=== PATIENT | male | born 1970 | race Caucasian/White ===

== ENCOUNTER 2022-06-24 16:45 | Emergency (ER) | payer BC, SELFPAY ==
[2022-06-24 16:46] VITALS: BP 132/86; PULSE 79; RESP 18; TEMP 35.6; O2SAT 97; BMI 27.3
[2022-06-24 18:51] LABS: Bacteria 0 SEEN /hpf (None Seen); Mucous, Urine 0 SEEN /hpf (<or=2+); Red Blood Cells-Urine 0 SEEN /hpf (0-5); Squamous Epithelial Cells - UA 0 SEEN /hpf (0-5)
[2022-06-24 18:58] LABS: Color, Urine Yellow (Yellow); Glucose, Dipstick 50 mg/dl (Normal); Ketone-Dipstick Negative (Negative); Leukocyte Esterase-Dipstick 25 /ul (Negative); Nitrite-Dipstick Negative (Negative); Occult Blood-Urine Negative /ul (Negative); Protein-Dipstick 15 mg/dl (Negative); Specific Gravity, Urine 1.015 (1.002-1.030); Urine Bilirubin Dipstick Negative (Negative); Urine Clarity Clear (Clear); Urine Urobilinogen Normal (Normal)
[2022-06-24 19:37] LABS: White Blood Cells 5-10 SEEN /hpf (0-5)
[2022-06-24 19:45] LABS: Absolute Lymphocyte Count 4.34 X10^3/uL (0.83-4.51); Absolute Neutrophil Count 9.5 X10^3/uL (2.0-7.7); Basophil# 0.07 X10^3/uL; Basophil% 0.4 % (0-1); Eosinophil# 0.37 X10^3/uL; Eosinophils% 2.3 % (0-5); Hematocrit 45.3 % (40-54); Hemoglobin 15.3 g/dL (13.0-16.5); Lymphocyte # 4.34 X10^3/ul (0.83-4.51); Lymphocyte % 27.2 % (19-41); Mean Corp Hgb Conc 33.8 g/dL (32-36); Mean Corpuscular Hgb 30.5 pg (27.0-32.0); Mean Corpuscular Volume 90.2 fL (80-94); Mean Platelet Vol. 9.8 fl (6.2-12.0); Monocyte# 1.61 X10^3/uL; Monocyte% 10.1 % (0-10); NRBC Flagged by Analyzer 0 % (0-5); Neutrophil % 59.7 % (47-70); POSITIVE DIFFERENTIAL YES; Platelet Count 313 K/mm3 (150-450); RBC Distribution Width CV 12.4 % (11.6-14.6); RBC Distribution Width SD 40.9 fl (35.1-43.9); Red Blood Count 5.02 M/mm3 (4.6-6.2); White Blood Count 15.9 K/mm3 (4.4-11.0)
[2022-06-24 19:46] LABS: Differential Indicated SCAN CRITERIA MET
[2022-06-24] MEDS: Ondansetron 4 MG/2 ML Vial IV (19:46)
[2022-06-24] MEDS: Ketorolac 15 MG/ML Vial IV (19:46)
[2022-06-24 20:04] LABS: Anion Gap 8 (5-15); BUN 27 mg/dL (7-18); BUN/Creat Ratio 20.3 RATIO (10-20); Calcium,Total 9.3 mg/dL (8.5-10.1); Chloride 103 mmol/L (98-107); Creatinine, Serum 1.33 mg/dL (0.70-1.30); EST Glomerular Filtration Rate 60 mL/min (>60); Est Glom Filt Rate - Afr Amer 72 mL/min (>60); Estimated Creatinine Clearance 63.49 ml/min; Glucose 130 mg/dL (74-106); Potassium 3.9 mmol/L (3.5-5.1); Sodium Level 137 mmol/L (136-145)
[2022-06-24 20:05] LABS: Differential Comment SCANNED
--- NOTE | 2022-06-24 20:05 | CT_ITS ---
INDICATION: RLQ abdominal pain EXAMINATION: CT ABDOMEN AND PELVIS WITH CONTRAST - CT Abdomen And Pelvis W/ Contrast Injection TECHNIQUE: Helically acquired images were obtained of the abdomen and pelvis following IV contrast. A radiation dose optimization technique was used for this scan. IV Contrast dosage and agent: 96 mL Isovue-370 Oral contrast: None. COMPARISON: 08/15/2016. FINDINGS: LOWER CHEST: Lung bases are clear. No cardiomegaly or pericardial effusion. LIVER: Homogeneous. No focal mass. GALLBLADDER AND BILIARY TREE: Tiny calcified gallstones. No gallbladder distension or wall edema. No intra- or extrahepatic biliary ductal dilation. PANCREAS: Substantial fatty replacement with a few coarse calcifications. SPLEEN: Normal size without focal cystic or solid mass. ADRENAL GLANDS: No nodules. KIDNEYS AND URETERS: 1.2 cm calculus at the right ureteropelvic junction with mild hydronephrosis and slightly delayed nephrogram. Other calculi layering in the right renal collecting system. Normal renal size and position. PERITONEUM: No ascites or free air. No other fluid collection. BOWEL: No evidence of acute appendicitis. No stomach or bowel distension. No focal inflammatory change. LYMPH NODES: No enlarged mesenteric or retroperitoneal lymph nodes. VESSELS: Aorta is non-dilated. URINARY BLADDER: Unremarkable. REPRODUCTIVE ORGANS: No pelvic masses. ABDOMINAL WALL: No discrete abdominal or pelvic wall hernia. BONES: Normal thoracolumbar vertebral alignment. CT/Abdomen/Pelvis W IV Cont ONLY IMPRESSION: Obstructing right UPJ 1.2 cm calculus. Normal appearance of the appendix. Electronically Signed: Taurus Fuentes MD at 20:51 EST ,
[2022-06-24 20:16] VITALS: BP 153/89; PULSE 64; RESP 18; O2SAT 93
[2022-06-24 21:52] VITALS: BP 130/62; PULSE 67; RESP 17; O2SAT 94
--- NOTE | 2022-06-24 21:53 | EDS_ITS ---
HPI History of Present Illness Chief Complaint: Flank Pain Narrative Narrative: 52-year-old male presenting with right lower quadrant abdominal pain and flank pain which has had for about 3 weeks. Is been on and off. Is taken ibuprofen with some relief. Patient states he has a distant history of kidney stones. He does admit to passing stones frequently and noticed at least 3 over the last 3 weeks. Patient denies any occult blood. No fever or chills. He has occasional nausea. No diarrhea or constipation. PFSH PFSH Medical History Diabetes mellitus Hypertension Home Medications amlodipine 5 mg tablet mg 06/24/22 [History Last Taken Unknown] insulin aspart U-100 100 unit/mL (3 mL) subcutaneous pen (Novolog FlexPen U-100 Insulin aspart) subcut 06/24/22 [History Last Taken Unknown] insulin degludec 100 unit/mL (3 mL) subcutaneous pen (Tresiba FlexTouch U-100 insulin) unit subcut 06/24/22 [History Last Taken Unknown] [id number] 36,000-114,000-180,000 unit capsule,delay rel (Creon) cap PO 06/24/22 [History Last Taken Unknown] lisinopril 20 mg-hydrochlorothiazide 12.5 mg tablet tab 06/24/22 [History Last Taken Unknown] metformin 500 mg tablet,extended release 24 hr mg PO 06/24/22 [History Last Taken Unknown] ondansetron 4 mg disintegrating tablet 4 mg PO Q8H PRN PRN Nausea #14 tabs 06/24/22 [Rx Last Taken Unknown] oxycodone 5 mg capsule 5 mg PO Q6H PRN pain 3 days #12 caps 06/24/22 [Rx Last Taken Unknown] Allergy/AdvReac Type Severity Reaction Status Date / Time No Known Allergies Allergy Verified 06/24/22 16:46 Surgical History Hx of tonsillectomy Social History Smoking Status: Never smoker ROS ROS ED Constitutional Constitutional ED: Denies chills, fever(s) or subjective Eyes Eyes: Denies change in vision or diplopia ENT ENT ED: Denies ear pain or rhinorrhea Cardiovascular Cardiovascular: Denies chest pain or palpitations Respiratory/Chest Respiratory/Chest: Denies cough or dyspnea Gastrointestinal Gastrointestinal: Reports abdominal pain and nausea; Denies constipation or diarrhea Genitourinary Genitourinary ED: Denies dysuria or hematuria Musculoskeletal Musculoskeletal: Denies arthralgias Integumentary Denies abscess Neurologic Neurologic: Denies headache(s) or paresthesias Psychiatric Psychiatric: Denies anxiety or depression EXAM Physical Exam Const Vital Signs: 06/24/22 16:46 06/24/22 18:22 06/24/22 20:16 Temperature 96.1 F L Temperature Source Temporal Pulse Rate 79 64 Respiratory Rate 18 18 Respiratory Effort Normal Non-Labored Respiratory Pattern Normal Blood Pressure 132/86 H 153/89 H Blood Pressure Mean 101 110 Pulse Ox 97 93 Oxygen Delivery Method Room Air Room Air 06/24/22 21:52 06/24/22 22:02 Temperature Temperature Source Pulse Rate 67 74 Respiratory Rate 17 18 Respiratory Effort Respiratory Pattern Blood Pressure 130/62 H 138/91 H Blood Pressure Mean 106 Pulse Ox 94 97 Oxygen Delivery Method Room Air Positive well nourished and well developed General Appearance ED: well developed and NAD HEENT Reports moist mucous membranes Eyes PERRL and EOMs intact bilaterally Resp normal respiratory effort Cardio regular rate and regular rhythm GI Palpation: tender RLQ Back/Spine General Back: CVA tenderness right Neuro oriented x3 Sensorium / Orientation: alert Psych mental status grossly normal Skin no rashes or lesions noted MDM MDM MDM Narrative Medical decision making narrative: Patient presenting with right lower quadrant abdominal pain and a history of kidney stones. Differential includes but is not limited to appendicitis, diverticulitis, pancreatitis, small bowel obstruction, perforated bowel, kidney stone, ureteral stone, UTI, pyelonephritis. He states he is actively passing stones over the last 3 weeks. Urinalysis is obtained and there is no occult blood or evidence of infection. CBC obtained shows a leukocytosis of 15.9. No significant left shift. Hemoglobin macular stable. Platelets normal. Creatinine 1.33 and will have any comparison. Patient was given a liter of IV fluids. Given that he has no other white blood cell count and right lower quadrant pain I did obtain a CT abdomen pelvis with IV contrast. Appendix appears normal on this. There is a very large 1.2 mm UPJ stone noted. His pain is pretty well controlled however. We do not have urology here. I offered him transfer versus discharge home and follow-up with outpatient. He wants to try to go home. He is given oxycodone and Zofran. Return precautions were discussed. Impression: 1. Abdominal pain 2. 1.2 mm UPJ stone 3. Leukocytosis Lab Data Labs: Laboratory Results - last 24 hr 06/24/22 06/24/22 06/24/22 18:35 18:35 18:35 WBC 15.9 H RBC 5.02 Hgb 15.3 Hct 45.3 MCV 90.2 MCH 30.5 MCHC 33.8 RDW Std Deviation 40.9 RDW Coeff of [place] 12.4 Plt Count 313 MPV 9.8 Immature Gran % (Auto) 0.300 Neut % (Auto) 59.7 Lymph % (Auto) 27.2 [place] % (Auto) 10.1 H Eos % (Auto) 2.3 Baso % (Auto) 0.4 Absolute Neuts (auto) 9.5 H Absolute Lymphs (auto) 4.34 Nucleated RBC % 0 Differential Comment SCANNED Diff Path Review May foll Sodium 137 Potassium 3.9 Chloride 103 Carbon Dioxide 26.0 Anion Gap 8 BUN 27 H Creatinine 1.33 H Estim Creat Clear Calc 63.49 Est GFR (MDRD) Af Amer 72 Est GFR (MDRD) Non-Af 60 BUN/Creatinine Ratio 20.3 H Glucose 130 H Calcium 9.3 Urine Color Yellow Urine Clarity Clear Urine pH 5.0 Ur Specific [employer] 1.015 Urine Protein 15 H Urine Glucose (UA) 50 H Urine Ketones Negative Urine Occult Blood Negative Urine Nitrite Negative Urine Bilirubin Negative Urine Urobilinogen Normal Ur Leukocyte Esterase 25 H Urine RBC 0 SEEN Urine WBC 5-10 SEEN Ur Squamous Epith Cells 0 SEEN Urine Bacteria 0 SEEN Urine Mucus 0 SEEN Radiography Diagnostic Testing: Clinical Impression(s) from Imaging Studies Abdomen/Pelvis CT 06/24/22 20:05 IMPRESSION: Obstructing right UPJ 1.2 cm calculus. Normal appearance of the appendix. Electronically Signed: Taurus Fuentes MD at 20:51 EST , Discharge Plan Triage Chief Complaint: Flank Pain ED Provider: Rk Powell Dx/Rx/DC Orders Instructions: ED Kidney Stone w/ Colic Prescriptions: New oxycodone 5 mg capsule 5 mg PO Q6H PRN (Reason: pain) 3 Days Qty: 12 0RF ondansetron 4 mg tablet,disintegrating 4 mg PO Q8H PRN PRN (Reason: Nausea) Qty: 14 0RF No Action lisinopril-hydrochlorothiazide 20-12.5 mg tablet Label Comments: TAKE 1 TABLET BY MOUTH ONCE DAILY amlodipine 5 mg tablet metformin 500 mg tablet extended release 24 hr PO Label Comments: TAKE 2 TABLETS BY MOUTH TWICE DAILY insulin aspart U-100 [Novolog FlexPen U-100 Insulin] 100 unit/mL (3 mL) insulin pen SUBCUT Label Comments: INJECT 2 TO 3 UNITS SUBCUTANEOUSLY WITH LUNCH, 14-16 UNITS WITH SUPPER. PLUS SLIDING SCALE NEEDED MAX OF 45 UNITS DAILY Creon 36,000-114,000- 180,000 unit capsule,delayed release(DR/EC) PO insulin degludec [Tresiba FlexTouch U-100] 100 unit/mL (3 mL) insulin pen SUBCUT Label Comments: INJECT 12 UNITS SUBCUTANEOUSLY IN THE MORNING AND AT NIGHT Primary Care Provider: Mercedes Huber Referrals: Juan Jose Youssef MD [Med Staff - Active Staff] - 3-5 Days Mercedes Huber MD [Primary Care Provider] - Activity Restrictions/Additional Instructions: You have a large right-sided 1.2 cm UPJ calculus. He will need to see urology. I have given you referral to Dr. Youssef, but as discussed you should see Dr. Jorge urologist as well. Return precautions as we discussed. Disposition Disposition: Home, Self Care Discharge Date/Time: 06/24/22 22:25
[2022-06-24 22:02] VITALS: BP 138/91; PULSE 74; RESP 18; O2SAT 97
[2022-06-24] MEDS: oxyCODONE 5 MG Tablet PO (22:02)
[2022-06-27 13:00] LABS: Pathologist Review Reviewed
== END 2022-06-24 22:25 | disposition home or self-care (01) ==
PROVIDERS: Emergency Provider Student in an Organized Health Care Education/Training Program; PCP Internal Medicine Infectious Disease; Visit Provider Student in an Organized Health Care Education/Training Program
DX: R10.31 Right lower quadrant pain (principal); N20.2 Calculus of kidney with calculus of ureter; D72.829 Elevated white blood cell count, unspecified
CPT/HCPCS: 74177; 80048; 81001; 85025; 96374; 96375; 99283; Q9967; A4216; J2405